=== PATIENT | female | born 1955 | race Caucasian/White ===

== ENCOUNTER 2016-12-06 12:55 | Emergency (ER) ==
[2016-12-06 12:55] VITALS: BMI 22.8
[2016-12-06 13:02] VITALS: BP 131/86; TEMP 99
[2016-12-06] MEDS: NORCO 5-325 PO STA (13:37)
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
--- NOTE | 2016-12-06 14:27 | DI ---
EXAM:Four view left knee COMPARISON: None HISTORY: Trauma and pain FINDINGS: There is no acute fracture or dislocation. Alignment is anatomic. There is extremely ad vanced tricompartmental degenerative change with joint space narrowing throughout and extensive rizwan inal osteophytosis and tibial spine hypertrophy. Soft tissues are unremarkable. No unexpected radio -opaque foreign bodies. IMPRESSION: 1. No acute osseous abnormality. 2. Advanced tricompartmental osteoarthritis.
== END 2016-12-06 13:49 | disposition home or self-care (01) ==
LOC: ED 12:55
DX: S83.92XA Sprain of unspecified site of left knee, initial encounter (principal); W17.89XA Other fall from one level to another, initial encounter; F17.210 Nicotine dependence, cigarettes, uncomplicated
CPT/HCPCS: 99283

== ENCOUNTER 2019-03-13 19:05 | Emergency (ER) ==
[2019-03-13 19:15] VITALS: BP 99/62; TEMP 99.9
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
[2019-03-13] MEDS ORDERED: TYLENOL PO STA (19:52)
--- NOTE | 2019-03-13 20:43 | DI ---
EXAM: Left knee four view HISTORY: Fell on knee with pain COMPARISON: 02/10/2019 FINDINGS: No fracture or dislocation. Moderate to severe tricompartmental osteoarthritis with joint space narrowing osteophyte formation. No joint effusion. IMPERSSION: 1. No fracture or dislocation. 2. Moderate to severe osteoarthritis.
--- NOTE | 2019-03-13 20:44 | DI ---
EXAM: Left ankle. Three-view HISTORY: Twisting injury COMPARISON: None FINDINGS: No fracture or dislocation. Ankle mortise symmetric. Tiny plantar and posterior calcanea l spurs. Mild osteoarthritis midfoot. IMPERSSION: 1. No fracture or dislocation. 2. Mild osteoarthritis midfoot 3. Tiny calcaneal spurs.
== END 2019-03-13 21:00 | disposition home or self-care (01) ==
LOC: ED 19:05
DX: S93.402A Sprain of unspecified ligament of left ankle, initial encounter (principal); M25.572 Pain in left ankle and joints of left foot; W19.XXXA Unspecified fall, initial encounter; Z96.652 Presence of left artificial knee joint; F17.210 Nicotine dependence, cigarettes, uncomplicated
CPT/HCPCS: 99283

== ENCOUNTER 2019-03-14 17:23 | Emergency (ER) ==
[2019-03-14 17:27] VITALS: BP 112/74; TEMP 98.2; BMI 20.8
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
== END 2019-03-14 18:28 | disposition home or self-care (01) ==
LOC: ED 17:23
DX: M25.562 Pain in left knee (principal); G89.29 Other chronic pain; F17.210 Nicotine dependence, cigarettes, uncomplicated
CPT/HCPCS: 99282